=== PATIENT | female | born 1990 | race Caucasian/White ===

== ENCOUNTER 2025-04-18 07:08 | Emergency (ER) | payer OTHER ==
[~2025-04-18] VITALS: Ht 177.8 cm; Wt 69.0 kg
[2025-04-18 07:16] VITALS: O2SAT 100
[2025-04-18] MEDS ORDERED: TOPUD PO (08:36)
[2025-04-18 08:53] VITALS: BP 109/46; PULSE 68; RESP 16; TEMP 37; O2SAT 100
[2025-04-18] MEDS ORDERED: ACETAMINOPHEN 325MG TABLET PO SCH (09:30)
== END 2025-04-18 08:55 | disposition home or self-care (01) ==
LOC: ER 07:08
DX: S01.112A Laceration without foreign body of left eyelid and periocular area, initial encounter (principal); S80.211A Abrasion, right knee, initial encounter; R56.9 Unspecified convulsions; W01.0XXA Fall on same level from slipping, tripping and stumbling without subsequent striking against object, initial encounter; X58.XXXA Exposure to other specified factors, initial encounter; Y93.01 Activity, walking, marching and hiking; Y92.89 Other specified places as the place of occurrence of the external cause; Y99.8 Other external cause status
CPT/HCPCS: 81025; 12011; 99282; Z7610